=== PATIENT | male | born 1985 | race Caucasian/White ===

== ENCOUNTER → 2019-08-24 11:24 | Outpatient (CLI) | payer MEDICARE, MEDICAID, SELFPAY ==
[2019-08-24 13:34] LABS: Add Manual Diff / Slide Review NO; Basophils Absolute Auto 100 /uL (0-100); Basophils Percent Auto 0.8 % (0-2); Eosinophils Absolute Auto 1300 /uL (0-450); Eosinophils Percent Auto 7.2 % (2-4); Hematocrit 46.5 % (41-53); Hemoglobin 15.8 g/dL (13.5-17.5); Lymphocytes Absolute Auto 1500 /uL (1100-4500); Lymphocytes Percent Auto 8.3 % (25-40); Mean Corpuscular HGB Conc 33.9 % (30-36); Mean Corpuscular Hemoglobin 27.5 PG (26-34); Mean Corpuscular Volume 81.1 fL (80-100); Monocytes Absolute Auto 1000 /uL (0-900); Monocytes Percent Auto 5.8 % (3-14); Neutrophils Absolute Auto 13800 /uL (1500-7000); Neutrophils Percent Auto 77.9 % (50-75); Platelet Count 406 X10^3/uL (150-400); Red Blood Cell Count 5.74 X10^6/uL (4.5-5.9); White Blood Cell Count 17.7 X10^3/uL (4.5-11.0)
[2019-08-24 14:23] LABS: Alanine Aminotransferase 42 IU/L (<50); Albumin 4.7 g/dL (3.5-5.0); Albumin Globulin Ratio 1.3 (1.0-2.8); Alkaline Phosphatase 101 U/L (38-126); Aspartate Aminotransferase 37 IU/L (17-59); BUN Creatinine Ratio 17.1 (6-22); Bilirubin Total 0.7 mg/dL (0.2-1.3); Blood Urea Nitrogen 13 mg/dL (9-20); Calcium 9.7 mg/dL (8.4-10.2); Carbon Dioxide 25 mmol/L (22-32); Chloride 101 mmol/L (98-107); Cholesterol 176 mg/dL (140-199); Estimated Glomerular Filt Rate > 60.0 mL/min (>60); Globulin 3.7 g/dL (1.7-4.1); Glucose 90 mg/dL (70-100); HDL Cholesterol 43 mg/dL (40-60); HEMOLYSIS < 15 (0-50); LDL Cholesterol Calculated 105 mg/dL (<100); Phenytoin / Dilantin < 3.0 ug/mL (10-20); Potassium 4.6 mmol/L (3.4-5.1); Sodium 139 mmol/L (137-145); Total Protein 8.4 g/dL (6.3-8.2); Triglycerides 140 mg/dL (35-150)
== END ==
PROVIDERS: Family Provider Family Medicine; PCP Registered Nurse; Referring Provider Registered Nurse; Visit Provider Registered Nurse
DX: G80.9 Cerebral palsy, unspecified (principal)
CPT/HCPCS: 36415; 80053; 80061; 80185; 85025

== ENCOUNTER 2019-08-27 18:39 | Emergency (ER) | payer MEDICARE, MEDICAID, SELFPAY ==
[2019-08-27 19:15] VITALS: BP 155/107; PULSE 92; RESP 22; TEMP 36.3; O2SAT 96; BMI 34.3
[2019-08-27] MEDS: DOXYCYCLINE HYCLATE 100 MG TABLET PO (23:06)
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
== END 2019-08-27 23:12 | disposition home or self-care (01) ==
PROVIDERS: Emergency Provider Nurse Practitioner Family; Family Provider Family Medicine; PCP Registered Nurse
DX: L70.0 Acne vulgaris (principal); I10 Essential (primary) hypertension; R79.89 Other specified abnormal findings of blood chemistry
CPT/HCPCS: 99283

== ENCOUNTER → 2019-09-12 13:53 | Outpatient (CLI) | payer MEDICARE, MEDICAID, SELFPAY ==
[2019-09-12 14:29] LABS: Add Manual Diff / Slide Review NO; Basophils Absolute Auto 200 /uL (0-100); Basophils Percent Auto 0.9 % (0-2); Eosinophils Absolute Auto 2200 /uL (0-450); Eosinophils Percent Auto 12.4 % (2-4); Hematocrit 48.5 % (41-53); Hemoglobin 16.1 g/dL (13.5-17.5); Lymphocytes Absolute Auto 2800 /uL (1100-4500); Lymphocytes Percent Auto 15.9 % (25-40); Mean Corpuscular HGB Conc 33.1 % (30-36); Mean Corpuscular Hemoglobin 27.3 PG (26-34); Mean Corpuscular Volume 82.4 fL (80-100); Monocytes Absolute Auto 1100 /uL (0-900); Monocytes Percent Auto 6.1 % (3-14); Neutrophils Absolute Auto 11500 /uL (1500-7000); Neutrophils Percent Auto 64.7 % (50-75); Platelet Count 476 X10^3/uL (150-400); Red Blood Cell Count 5.89 X10^6/uL (4.5-5.9); Red Cell Distribution Width 15.2 % (11.6-14.8); White Blood Cell Count 17.8 X10^3/uL (4.5-11.0)
--- NOTE | 2019-09-20 10:55 | ONC.MSW ---
Description: New Referral Navigation Reason for Referral: Thrombocytopenia Activity: Reviewed referral for acuity, medical status, and immediate needs. Forwarded to scheduling for next available appt. time.
== END ==
PROVIDERS: Family Provider Family Medicine; PCP Registered Nurse; Referring Provider Registered Nurse; Visit Provider Registered Nurse
DX: I10 Essential (primary) hypertension (principal); R89.9 Unspecified abnormal finding in specimens from other organs, systems and tissues
CPT/HCPCS: 36415; 85025

== ENCOUNTER → 2019-10-19 11:40 | Outpatient (CLI) | payer MEDICARE, MEDICAID, SELFPAY | PROVIDERS: Family Provider Family Medicine; PCP Registered Nurse; Referring Provider Registered Nurse; Visit Provider Registered Nurse | DX: K43.9 Ventral hernia without obstruction or gangrene (principal); Z53.8 Procedure and treatment not carried out for other reasons ==

== ENCOUNTER → 2019-10-26 13:46 | Outpatient (CLI) | payer MEDICARE, MEDICAID, SELFPAY ==
--- NOTE | 2019-10-26 13:53 | DI.CT.S_ITS ---
PROCEDURE: CT ABDOMEN WO CON INDICATIONS: Leukocytosis, eosinophilia, thrombocytosis-assess spleen siz TECHNIQUE: After the administration of oral contrast, 5 mm thick sections acquired from the diaphragms to the iliac crests. 5 mm coronal and sagittal reformats were then performed. For radiation dose reduction, the following was used: automated exposure control, adjustment of mA and/or kV according to patient size. COMPARISON: None. FINDINGS: Image quality: Excellent. Lung bases: Lung bases are clear. Heart size is normal. Solid organs: Liver is mildly enlarged, measuring up to 21 mm in craniocaudal dimension.. Gallbladder appears normal. Pancreas is normal in contours. Spleen is normal in size, measuring up to 9.6 cm in greatest dimension.. No adrenal nodules. 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 Peritoneum and bowel: Bowel loops demonstrate normal wall thickness and caliber. There is redundancy of the sigmoid colon that is incompletely included on the study. No free fluid or air. Nodes and vessels: No retroperitoneal or mesenteric adenopathy by size criteria. Aorta and inferior vena cava are normal in size. Bones: No suspicious bony lesions. No vertebral body compression fractures. 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 Miscellaneous: No ventral hernias. IMPRESSION: 1. No acute abnormality is seen in the abdomen or pelvis. 2. Mild hepatomegaly. The spleen is normal in size. Dictated by: Ben Ontiveros M.D. on 10/26/2019 at 14:04 Approved by: Ben Ontiveros M.D. on 10/26/2019 at 14:11
== END ==
PROVIDERS: Family Provider Family Medicine; PCP Registered Nurse; Referring Provider Registered Nurse; Visit Provider Internal Medicine
DX: D47.3 Essential (hemorrhagic) thrombocythemia (principal); D72.829 Elevated white blood cell count, unspecified; R16.0 Hepatomegaly, not elsewhere classified
CPT/HCPCS: 74150

== ENCOUNTER → 2020-04-12 12:08 | Outpatient (CLI) | payer MEDICARE, MEDICAID, SELFPAY | PROVIDERS: PCP Family Medicine; Referring Provider Internal Medicine; Visit Provider Internal Medicine | DX: D72.829 Elevated white blood cell count, unspecified (principal); R56.9 Unspecified convulsions; I10 Essential (primary) hypertension | CPT/HCPCS: 36415 ==

== ENCOUNTER 2024-08-12 15:39 | Emergency (ER) | payer OTHER, MEDICAID, SELFPAY ==
[2024-08-12] VITALS (19 sets, daily range): BP systolic 113–153; BP diastolic 55–74; PULSE 83–98; RESP 16–29; TEMP 35.9–37.1; O2SAT 88–98
--- NOTE | 2024-08-12 16:03 | EKG_ITS ---
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
--- NOTE | 2024-08-12 16:03 | DI.RAD.S_ITS ---
PROCEDURE: XR CHEST 1V INDICATIONS: altered mental status TECHNIQUE: One view of the chest was acquired. COMPARISON: None. FINDINGS AND IMPRESSION: Moderate diffuse lung disease likely edema and/or infection. No definite effusions. Very low lung volumes, limiting evaluation. Abnormal cardiomegaly, at least moderate. Consider echocardiogram correlation. Dictated by: Addison Barragan M.D. on 08/12/2024 at 15:42 Approved by: Addison Barragan M.D. on 08/12/2024 at 15:43
--- NOTE | 2024-08-12 16:04 | DI.CT.S_ITS ---
PROCEDURE: CT HEAD/BRAIN WO CON INDICATIONS: N/V/D sudden seizure known disorder TECHNIQUE: Noncontrast 4.5 mm thick angled axial sections acquired from the foramen magnum to the vertex, with coronal and sagittal reformats. For radiation dose reduction, the following was used: automated exposure control, adjustment of mA and/or kV according to patient size. COMPARISON: None. FINDINGS: Image quality: Diagnostic CSF spaces: Moderate to large ventriculomegaly. Basal cisterns appear patent. Prominent posterior fossa CSF space behind the cerebellar hemispheres also present. Brain: No acute hemorrhage. Relatively smaller cerebellar hemispheres than expected. Craniofacial structures: No significant paranasal sinus opacity. IMPRESSION: Moderate to large hydrocephalus. Intact basal cisterns. Dilation mainly involves the lateral ventricles. No acute hemorrhage. Relatively small cerebellar hemispheres than expected. Prominent posterior fossa CSF spaces. Neuro surgical consultation recommended given reported history. Dictated by: Addison Barragan M.D. on 08/12/2024 at 15:22 Approved by: Addison Barragan M.D. on 08/12/2024 at 15:25
[2024-08-12] MEDS: ONDANSETRON 4 MG ODT SL (16:44)
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
[2024-08-12 16:55] LABS: Add Manual Diff / Slide Review NO; Hematocrit 48.3 % (41-53); Hemoglobin 16.1 g/dL (13.5-17.5); Lymphocytes Absolute Auto 1200 /uL (1100-4500); Mean Corpuscular HGB Conc 33.3 % (30-36); Mean Corpuscular Hemoglobin 28.0 PG (26-34); Mean Corpuscular Volume 84.1 fL (80-100); Platelet Count 399 X10^3/uL (150-400)
[2024-08-12 17:03] LABS: Lactate (Lactic Acid) 5.1 mmol/L (0.7-2.1)
[2024-08-12 17:04] LABS: Alanine Aminotransferase 41 IU/L (<50); Albumin 5.0 g/dL (3.5-5.0); Albumin Globulin Ratio 1.1 (1.0-2.8); Alkaline Phosphatase 81 U/L (38-126); Blood Urea Nitrogen 16 mg/dL (9-20); Calcium 9.0 mg/dL (8.4-10.2); Carbon Dioxide 20 mmol/L (22-32); Chloride 106 mmol/L (98-107); Creatine Kinase 188 U/L (55-170); Estimated Glomerular Filt Rate > 60 mL/min (>60); Ethanol (ETOH) < 10 mg/dL (<10); Globulin 4.6 g/dL (1.7-4.1); Glucose 172 mg/dL (70-99); Sodium 141 mmol/L (137-145); Total Protein 9.6 g/dL (6.3-8.2)
[2024-08-12 17:07] LABS: HEMOLYSIS 70 (0-50); Potassium 4.0 mmol/L (3.4-5.1)
[2024-08-12] MEDS: MIDAZOLAM 5 MG/ML VIAL 2 MG IM (17:14)
[2024-08-12 17:15] LABS: Troponin I < 0.012 ng/mL (0.01-0.034)
[2024-08-12 17:20] LABS: Procalcitonin 0.047 ng/mL (<0.5)
[2024-08-12 17:47] LABS: Phenytoin / Dilantin 31.4 ug/mL (10-20)
[2024-08-12 18:25] LABS: Reflexed Lactate in 2 Hours Y
--- NOTE | 2024-08-12 18:45 | ED.SEIZURE ---
HPI - Seizure General Chief Complaint: Seizure Stated Complaint: N/V/D seizure Time Seen by Provider: 08/12/24 17:28 Source: family Mode of arrival: Wheelchair History of Present Illness HPI Narrative: 38-year-old male with history of cerebral palsy, seizure disorder longstanding, remote phenobarbital, most recent antiseizure regimen lamotrigine 200 mg b.i.d., also taking phenytoin (125mg/5mL) taking 1-1/2 tsp by mouth nightly. No syringe used for the dosing of the Dilantin, dispensed by kitchen utensil teaspoon (not measuring teaspoon or half-teaspoon). No extra doses or change in doses known. Has regular breakthrough seizures. Last seen by Neurology 5 years ago. No recent phenytoin drug levels as he is quite combative apparently with draws. Tonight noted to have shaking witnessed seizure by family, lasting longer than usual. Subsequent nonbloody emesis x2 episodes, no apparent abdominal discomfort. No head trauma known. No incontinence of urine or stool. Mother also recalls previous spinal taps to take off fluid, perhaps up to age 22, but no [employer] shunting procedure recalled to have been done. Does not recognize diagnosis of hydrocephalus, or fluid on the brain type problem. Baseline functions: Nonverbal, ambulates with a walker, can not dress himself, can usually feed himself. Lives with family, family members are caregivers. Related Data Home Medications ?Medication ?Instructions ?Recorded ?Confirmed Leg braces #1 ea 08/22/19 01/13/23 diapers #1 ea 08/22/19 01/13/23 Previous Rx's ?Medication ?Instructions ?Recorded clindamycin phosphate 1 % topical See Rx Instructions .Route 06/17/23 gel .COMPLEX #60 grams doxepin 10 mg capsule 10 mg PO BEDTIME #30 caps 06/17/23 lamotrigine 200 mg tablet See Rx Instructions .Route 01/20/24 .COMPLEX #84 tabs losartan 100 mg tablet See Rx Instructions .Route 01/20/24 .COMPLEX #42 tabs doxycycline hyclate 100 mg capsule See Rx Instructions .Route 03/01/24 .COMPLEX #14 caps albuterol sulfate 2.5 mg/3 mL See Rx Instructions .Route 06/08/24 (0.083 %) solution for nebulization .COMPLEX #180 mL Disabled Parking Permit #1 ea 07/12/24 phenytoin 125 mg/5 mL oral See Rx Instructions .Route 07/31/24 suspension .COMPLEX #474 mL Allergies Allergy/AdvReac Type Severity Reaction Status Date / Time No Known Drug Allergies Allergy Verified 08/12/24 16:11 Patient History Medical History (Updated 08/12/24 @ 23:40 by Ernst Cook MD) Leukemia Decreased mobility Hidradenitis suppurativa Seizures Family History Mother Heart disease Diabetes mellitus Brother Diabetes mellitus Social History marital status: unmarried,single household members: family Smoking Status: Unknown if ever smoked alcohol intake: never substance use type: does not use Smoking Status: Unknown if ever smoked alcohol intake frequency: 0-2 drinks per day Exam Narrative Exam Narrative: GENERAL: Well-developed patient, in mild distress. Anxious appearing, baseline nonverbal, history of cerebral palsy. HEAD: Atraumatic. Normocephalic. EYES: Pupils equal round and reactive. Extraocular motions intact. No scleral icterus. No injection or drainage. ENT: Face without obvious droop, no gross craniofacial trauma. NECK: Trachea midline. Moving neck well. CARDIOVASCULAR: Regular rate and rhythm without murmurs, gallops, or rubs. RESPIRATORY: Clear to auscultation. Breath sounds equal bilaterally. No wheezes, rales, or rhonchi. GASTROINTESTINAL: Abdomen soft, non-tender, nondistended. EXTREMITIES: No edema or joint tenderness. BACK: Nontender without deformity or crepitance. No flank tenderness. NEURO: AOx3. Did not follow commands, but noted to be moving all extremities spontaneously in supine position on gurney. SKIN: No rash or erythema of visible areas Initial Vital Signs Initial Vital Signs: Vital Signs Pulse Rate 98 H 08/12/24 16:03 Pulse Oximetry 92 08/12/24 16:03 Course Orders Ordered: ED Orders 08/12/24 16:40 Blood Culture Stat 08/12/24 21:15 Covid-19 + FLU A/B + RSV - PCR Stat Discontinued Medications Midazolam HCl (Midazolam 5 Mg/Ml Vial) 2 mg IM NOW ONE Stop: 08/12/24 17:12 Last Admin: 08/12/24 17:14 Dose: 2 mg Documented By: DIPTI Ondansetron HCl (Ondansetron 4 Mg Odt) 4 mg SL NOW ONE Stop: 08/12/24 16:42 Last Admin: 08/12/24 16:44 Dose: 4 mg Documented By: DIPTI Ondansetron HCl (Ondansetron 4 Mg/2 Ml Inj) 4 mg IV NOW ONE Stop: 08/12/24 21:06 Last Admin: 08/12/24 21:10 Dose: 4 mg Documented By: DIPTI Vital Signs Vital signs: Vital Signs - 8 hr 08/12/24 18:00 08/12/24 18:00 08/12/24 18:30 Temperature Pulse Rate 84 Respiratory Rate 29 H Blood Pressure 119/55 L 113/59 L Pulse Oximetry 91 08/12/24 18:30 08/12/24 19:00 08/12/24 19:00 Temperature Pulse Rate 85 90 Respiratory Rate 20 23 Blood Pressure 119/63 Pulse Oximetry 91 89 L 08/12/24 19:30 08/12/24 19:30 08/12/24 20:00 Temperature Pulse Rate 84 Respiratory Rate 20 Blood Pressure 119/65 118/64 Pulse Oximetry 93 08/12/24 20:00 08/12/24 20:30 08/12/24 20:30 Temperature Pulse Rate 84 87 Respiratory Rate 20 23 Blood Pressure 124/70 Pulse Oximetry 92 94 08/12/24 21:00 08/12/24 21:01 08/12/24 21:01 Temperature Pulse Rate 91 H 87 Respiratory Rate 16 20 Blood Pressure 153/74 H Pulse Oximetry 94 95 08/12/24 21:30 08/12/24 21:30 08/12/24 22:00 Temperature 98.7 F Pulse Rate 91 H 90 Respiratory Rate 21 Blood Pressure 137/66 Pulse Oximetry 94 91 08/12/24 22:01 08/12/24 22:01 08/12/24 22:30 Temperature Pulse Rate 91 H Respiratory Rate Blood Pressure 124/56 L 119/57 L Pulse Oximetry 93 08/12/24 22:30 08/12/24 22:30 08/12/24 22:30 Temperature Pulse Rate 87 Respiratory Rate Blood Pressure 119/57 L 119/57 L Pulse Oximetry 94 08/12/24 23:00 08/12/24 23:00 Temperature Pulse Rate 90 Respiratory Rate Blood Pressure 117/59 L Pulse Oximetry 91 MDM - Seizure Lab Data Attestation: I reviewed the patient's lab results. Lab results narrative: White blood cell count 59650, hemoglobin 16, platelets adequate. Glucose 172. Normal renal function. Serum CO2 20. Sodium 141 with potassium 4.0. Liver functions normal. Alcohol level negative. Procalcitonin 0.047. Phenytoin level 34 elevated. Troponin negative/unmeasurable. 08/12/24 16:30 08/12/24 16:30 Labs: Lab Results 08/12/24 08/12/24 08/12/24 Range/Units 16:08 16:30 18:40 WBC 16.8 H (4.5-11.0) X10^3/uL RBC 5.74 (4.5-5.9) X10^6/uL Hgb 16.1 (13.5-17.5) g/dL Hct 48.3 (41-53) % MCV 84.1 (80-100) fL MCH 28.0 (26-34) PG MCHC 33.3 (30-36) % RDW 14.9 H (11.6-14.8) % Plt Count 399 (150-400) X10^3/uL Neut % (Auto) 84.5 H (50-75) % Lymph % (Auto) 7.3 L (25-40) % [place] % (Auto) 5.6 (3-14) % Eos % (Auto) 2.1 (2-4) % Baso % (Auto) 0.5 (0-2) % Neut # (Auto) 57759 H (0726-9144) /uL Lymph # (Auto) 1200 (4682-5656) /uL [place] # (Auto) 900 (0-900) /uL Eos # (Auto) 300 (0-450) /uL Baso # (Auto) 100 (0-100) /uL Sodium 141 (137-145) mmol/L Potassium 4.0 (3.4-5.1) mmol/L Chloride 106 (98-107) mmol/L Carbon Dioxide 20 L (22-32) mmol/L BUN 16 (9-20) mg/dL Creatinine 1.00 (0.66-1.25) mg/dL Estimated GFR > 60 (>60) mL/min BUN/Creatinine Ratio 16.0 (6-22) Glucose 172 H (70-99) mg/dL POC Whole Bld Glucose 175 H (70-99) mg/dL Lactate 5.1 H* 2.7 H (0.7-2.1) mmol/L Calcium 9.0 (8.4-10.2) mg/dL Total Bilirubin 0.7 (0.2-1.3) mg/dL AST 53 (17-59) IU/L ALT 41 (<50) IU/L Alkaline Phosphatase 81 (38-126) U/L Total Creatine Kinase 188 H (55-170) U/L Troponin I < 0.012 (0.01-0.034) ng/mL Total Protein 9.6 H (6.3-8.2) g/dL Albumin 5.0 (3.5-5.0) g/dL Globulin 4.6 H (1.7-4.1) g/dL Albumin/Globulin Ratio 1.1 (1.0-2.8) Procalcitonin 0.047 (<0.5) ng/mL Phenytoin 31.4 H* (10-20) ug/mL Ethyl Alcohol < 10 (<10) mg/dL SARS-CoV-2 (PCR) (Negative) Influenza A (RT-PCR) (NEGATIVE) Influenza B (RT-PCR) (NEGATIVE) RSV (PCR) (Negative) 08/12/24 Range/Units 21:15 WBC (4.5-11.0) X10^3/uL RBC (4.5-5.9) X10^6/uL Hgb (13.5-17.5) g/dL Hct (41-53) % MCV (80-100) fL MCH (26-34) PG MCHC (30-36) % RDW (11.6-14.8) % Plt Count (150-400) X10^3/uL Neut % (Auto) (50-75) % Lymph % (Auto) (25-40) % [place] % (Auto) (3-14) % Eos % (Auto) (2-4) % Baso % (Auto) (0-2) % Neut # (Auto) (1863-0096) /uL Lymph # (Auto) (0888-7523) /uL [place] # (Auto) (0-900) /uL Eos # (Auto) (0-450) /uL Baso # (Auto) (0-100) /uL Sodium (137-145) mmol/L Potassium (3.4-5.1) mmol/L Chloride (98-107) mmol/L Carbon Dioxide (22-32) mmol/L BUN (9-20) mg/dL Creatinine (0.66-1.25) mg/dL Estimated GFR (>60) mL/min BUN/Creatinine Ratio (6-22) Glucose (70-99) mg/dL POC Whole Bld Glucose (70-99) mg/dL Lactate (0.7-2.1) mmol/L Calcium (8.4-10.2) mg/dL Total Bilirubin (0.2-1.3) mg/dL AST (17-59) IU/L ALT (<50) IU/L Alkaline Phosphatase (38-126) U/L Total Creatine Kinase (55-170) U/L Troponin I (0.01-0.034) ng/mL Total Protein (6.3-8.2) g/dL Albumin (3.5-5.0) g/dL Globulin (1.7-4.1) g/dL Albumin/Globulin Ratio (1.0-2.8) Procalcitonin (<0.5) ng/mL Phenytoin (10-20) ug/mL Ethyl Alcohol (<10) mg/dL SARS-CoV-2 (PCR) Negative (Negative) Influenza A (RT-PCR) Flu a negative (NEGATIVE) Influenza B (RT-PCR) Flu b negative (NEGATIVE) RSV (PCR) Negative (Negative) Point of Care Testing Glucose POC 175 Urine Dip Bedside Urine Glucose Negative Bedside Urine Bilirubin - Negative Bedside Urine Ketone - Negative Urine Specific [place] 1.030 Bedside Urine Occult Blood - Negative Bedside Urine pH 6.0 Bedside Urine Protein +/- 15 Bedside Urine Urobilinogen - Negative Bedside Urine Nitrite - Negative Bedside Urine Leukocytes - Negative Esterase Imaging Data CT scan - head: Radiologist's Impression: [address] [address] [address] Scan Report Signed Patient: Loy Tabares MR#: [id number] : 1985 Acct:[id number] Age/Sex: 38 / M Date of Service: 08/12/24 Loc: ED Accession Number: [id number] Procedure: CT head/brain wo con Ordering Provider: Anish Rodriguez MD PROCEDURE: CT HEAD/BRAIN WO CON INDICATIONS: N/V/D sudden seizure known disorder TECHNIQUE: Noncontrast 4.5 mm thick angled axial sections acquired from the foramen magnum to the vertex, with coronal and sagittal reformats. For radiation dose reduction, the following was used: automated exposure control, adjustment of mA and/or kV according to patient size. COMPARISON: None. FINDINGS: Image quality: Diagnostic CSF spaces: Moderate to large ventriculomegaly. Basal cisterns appear patent. Prominent posterior fossa CSF space behind the cerebellar hemispheres also present. Brain: No acute hemorrhage. Relatively smaller cerebellar hemispheres than expected. Craniofacial structures: No significant paranasal sinus opacity. IMPRESSION: Moderate to large hydrocephalus. Intact basal cisterns. Dilation mainly involves the lateral ventricles. No acute hemorrhage. Relatively small cerebellar hemispheres than expected. Prominent posterior fossa CSF spaces. Neuro surgical consultation recommended given reported history. Dictated by: Addison Barragan M.D. on 08/12/2024 at 15:22 Approved by: Addison Barragan M.D. on 08/12/2024 at 15:25 ECG Data Attestation: I personally reviewed and interpreted this ECG as follows: Interpretation: 1648, normal sinus rhythm, rate 85. No obvious ST segment elevation or depression changes. [facility] Narrative Medical decision making narrative: 38-year-old male with cerebral palsy and seizure disorder since childhood, most recent antiseizure regimen lamotrigine 200 mg twice daily. Also still taking Dilantin (125 mg per 5 cc concentration) given by tsp, with dose 1-1/2 tsp by mouth. Apparently not using any syringe more accurate dosing. No intended change in dosing. No intended person giving the medications differently. Noted to have witnessed seizure today. Lab data: White blood cell count 52988, hemoglobin 16, platelets adequate. Glucose 172. Normal renal function. Serum CO2 20. Sodium 141 with potassium 4.0. Liver functions normal. Alcohol level negative. Procalcitonin 0.047. Phenytoin level 34 elevated. Troponin negative/unmeasurable. Dilantin level 34 elevated. By history it seems like estimated 1-1/2 tsp is inaccurate, and prone to measure/estimate/dispense incorrectly. Consider admission for Dilantin toxicity and likely associated seizure. Hold Dilantin dosing. Advised future use of Dilantin to be administered by syringe accurately at 7.5 cc daily, to have follow up drug level to ensure this is not going into toxic or subtherapeutic ranges. Family expressed understanding. CT Head noncontrast. IMPRESSION: Moderate to large hydrocephalus. Intact basal cisterns. Dilation mainly involves the lateral ventricles.No acute hemorrhage.Relatively small cerebellar hemispheres than expected. Prominent posterior fossa CSF spaces.Neuro surgical consultation recommended given reported history. See radiology report. No mention of any comparison studies. No mention of any [employer]OL [employer] shunt. CT shows moderate to large hydrocephalus, no mention of any acute hemorrhage, no mention of any shunt in place. No comparisons. We will reach out to neurology/neurosurgery, possible transfer. 1999, case discussed with [facility], to coordinate neurology/neurosurgery consultation. 2204, case discussed with neurosurgery [facility], Dr. Flores who will attempt to look at any comparison films through their or [facility]'s database if any. 2119, case discussed again with Dr. Flores who accepts for further evaluation in [facility] ED. Critical Care Time Critical Care Time Total Critical Care Time: 35 Attestation: The high probability of a clinically significant, sudden or life threatening deterioration of the [neurologic] system(s) required my full and direct attention, intervention and personal management. The aggregate critical care time was [35] minutes. This time is in addition to time spent performing reported procedures but includes the following: [x] Data Review and interpretation [x] Patient assessment and monitoring of vital signs [x] Documentation [x] Medication orders and management Discharge Plan Departure Patient Disposition: [facility] Clinical Impression: Seizure, Dilantin toxicity, Hydrocephalus, History of cerebral palsy, History of seizure disorder Prescriptions: No Action clindamycin phosphate 1 % gel See Rx Instructions .ROUTE .COMPLEX Qty: 60 2RF Dose Instruction: APPLY THIN FILM TO AFFECTED AREA(S) TWICE DAILY FOR ACNE Rx Instructions: APPLY THIN FILM TO AFFECTED AREA(S) TWICE DAILY FOR ACNE doxepin 10 mg capsule 10 mg PO BEDTIME Qty: 30 1RF losartan 100 mg tablet See Rx Instructions .ROUTE .COMPLEX Qty: 42 0RF Dose Instruction: TAKE 1 TABLET (100 MG) BY MOUTH DAILY Rx Instructions: TAKE 1 TABLET (100 MG) BY MOUTH DAILY lamotrigine 200 mg tablet See Rx Instructions .ROUTE .COMPLEX Qty: 84 1RF Dose Instruction: TAKE 1 TABLET ORALLY TWICE A DAY APPOINTMENT DUE WITH PCP. PLEASE CALL TO SCHEDULE APPT. THANK YOU 10/06/21. Rx Instructions: TAKE 1 TABLET ORALLY TWICE A DAY albuterol sulfate 2.5 mg /3 mL (0.083 %) solution for nebulization See Rx Instructions .ROUTE .COMPLEX Qty: 180 3RF Dose Instruction: INHALE THE CONTENTS OF 1 VIAL VIA NEBULIZER EVERY 4 HOURS NEEDED FOR ASTHMA Rx Instructions: INHALE THE CONTENTS OF 1 VIAL VIA NEBULIZER EVERY 4 HOURS NEEDED FOR ASTHMA (DME) Disabled Parking Permit See Rx Instructions .ROUTE .MEDSUPPLY Qty: 1 0RF Rx Instructions: I find this patient to be medically disabled and qualified for Disabled Parking as indicated and signed on the accompanying Disabled Parking Application for Individuals. phenytoin 125 mg/5 mL suspension See Rx Instructions .ROUTE .COMPLEX Qty: 474 2RF Dose Instruction: TAKE 7.5 ML BY MOUTH TWICE DAILY Rx Instructions: TAKE 7.5 ML BY MOUTH TWICE DAILY (DME) diapers Qty: 1 (DME) Leg braces Qty: 1 doxycycline hyclate 100 mg capsule See Rx Instructions .ROUTE .COMPLEX Qty: 14 3RF Dose Instruction: TAKE 1 CAPSULE (100 MG) BY MOUTH TWICE DAILY Rx Instructions: TAKE 1 CAPSULE (100 MG) BY MOUTH TWICE DAILY for seven days for hidradenitis suppurativa Referrals: Jerome Watson MD [Primary Care Provider, Family Practice]
[2024-08-12 19:00] LABS: Lactate 2HR (Lactic Acid Rflx) 2.7 mmol/L (0.7-2.1)
[2024-08-12] MEDS: ONDANSETRON 4 MG/2 ML INJ IV (21:10)
--- NOTE | 2024-08-12 21:50 | PC.NURSE ---
Pt had an episode of emesis after having a sip of sprite from family. Zofran given. wee bag removed from patient, small amount of urine, pt had urine dip. Pt then had a large void, bed changed and care provided. Pt tolerated well.
[2024-08-12 22:05] LABS: Influenza A - CEPHEID Flu A NEGATIVE (NEGATIVE); Influenza B - CEPHEID Flu B NEGATIVE (NEGATIVE)
[2024-08-12 22:06] LABS: COVID-19 CEPHEID 4-PLEX PCR Negative (Negative)
[2024-08-13 17:07] LABS: Acinetobacter calcoa-baumannii Not Detected (Not Detect); Bacteroides fragilis Not Detected (Not Detect); Candida auris Not Detected (Not Detect); Candida glabrata Not Detected (Not Detect); Cryptococcus neoformans/gatti Not Detected (Not Detect); Enterobacterales Not Detected (Not Detect); Enterococcus faecalis Not Detected (Not Detect); Enterococcus faecium Not Detected (Not Detect); Klebsiella aerogenes Not Detected (Not Detect); Proteus species Not Detected (Not Detect); Serratia marcescens Not Detected (Not Detect); Staphylococcus epidermidis Not Detected (Not Detect); Staphylococcus lugdunensis Not Detected (Not Detect); Staphylococcus species Detected (Not Detect); Stenotrophomonas maltophilia Not Detected (Not Detect); Streptococcus agalactiae (Gr B Not Detected (Not Detect); Streptococcus pneumonia Not Detected (Not Detect); Streptococcus pyogenes (Gr A) Not Detected (Not Detect); Streptococcus species Not Detected (Not Detect)
== END 2024-08-12 23:25 | disposition short-term general hospital (02) ==
PROVIDERS: Emergency Medicine; Emergency Provider Emergency Medicine; PCP Family Medicine
DX: G40.909 Epilepsy, unspecified, not intractable, without status epilepticus (principal); T42.0X1A Poisoning by hydantoin derivatives, accidental (unintentional), initial encounter; G91.9 Hydrocephalus, unspecified; Z86.69 Personal history of other diseases of the nervous system and sense organs
CPT/HCPCS: 36415; 70450; 71045; 80053; 80185; 80320; 81003; 82550; 82962; 83605; 84145; 84484; 85025; 87040; 87077; 87154; 87637; 93005; 93010; 96372; 96374; 99285; 99291; J2250; J2405